=== PATIENT | male | born 1990 | race Caucasian/White ===

== ENCOUNTER 2017-08-02 19:13 | Emergency (ER) | payer BC ==
[2017-08-02 19:24] VITALS: TEMP 98.4
[2017-08-02] MEDS ORDERED: methylPREDNISolone SOD SUCC 125 MG/2 ML VIAL IVP ONE (19:46)
[2017-08-02] MEDS ORDERED: RANITIDINE 50 MG/2 ML VIAL IVP ONE (19:46)
--- NOTE | 2017-08-02 19:48 | EDPHY ---
H & P Time Seen by Provider: 08/02/17 19:40 HPI/ROS: Chief complaint. Allergic reaction HPI. 26-year-old male with known allergic reaction to milk and dairy products was eating in a restaurant and apparently the foods that he was eating were supposed to be without milk and dairy free. He started to become nauseated and then became quite red. He was concerned that this felt like a previous allergic reaction. He went to his car and gave himself an EpiPen. EMS was contacted and they started IV gave the patient IV Benadryl and some Zofran for nausea and transported the patient to the department. Patient continues to be red and slightly nauseated. He has had previous allergic reactions. Otherwise no new skin products cleansers or foods. ROS Constitutional. no fever/chills, no weakness Eyes. no problems with vision ENT. Slight throat swelling Cardiovascular. no chest pain Respiratory. no shortness of breath, no cough Abdominal. no abdominal pain, no nausea/vomiting, no diarrhea . no problems urinating MS. no calf pain/swelling, no neck/back pain, no joint pain the Skin. Generalized hives Lymph. no swollen glands Neuro. no headache, no dizziness, no difficulty walking or with speech Past Medical/Surgical History: Asthma and allergic reaction Social History: Single, nonsmoker, no alcohol Smoking Status: Never smoked Physical Exam: General Appearance: Alert well-developed male moderate distress vital signs are stable Eyes: Pupils equal and round no pallor or injection. ENT, pharynx somewhat injected and swollen uvula. No stridor. Speaking in full sentences Respiratory: There are no retractions, lungs are clear to auscultation. Cardiovascular: Regular rate and rhythm. Gastrointestinal: Abdomen is soft and nontender, no masses, bowel sounds normal. Neurological: Awake and alert, sensory and motor exams grossly normal. Skin: Generalized maculopapular hive especially to the face and upper chest Musculoskeletal: Neck is supple nontender. Extremities symmetrical, full range of motion. Psychiatric: Patient is oriented X 3, there is no agitation. Constitutional: Initial Vital Signs Temperature (C) 36.9 C 08/02/17 19:23 Heart Rate 89 08/02/17 19:23 Respiratory Rate 22 H 08/02/17 19:23 Blood Pressure 151/84 H 08/02/17 19:23 O2 Sat (%) 94 08/02/17 19:23 O2 Delivery Mode Nasal Cannula O2 (L/minute) 1 Allergies/Adverse Reactions: milk Allergy (Verified 08/02/17 19:22) nut - unspecified Allergy (Verified 08/02/17 19:22) Home Medications: Medication Instructions Recorded Albuterol 08/02/17 EPINEPHrine [Epipen 0.3 MG] 0.3 mg IM ONCE #2 syr 08/02/17 EPIPEN 08/02/17 Prozac 10 MG (*) 08/02/17 predniSONE 40 mg PO DAILY #8 tablet 08/02/17 Medical Decision Making Procedures: IV normal saline. Albuterol updraft. Repeat epinephrine as the patient is still quite symptomatic. IV Solu-Medrol, H2 jes ED Course/Re-evaluation: Re-evaluation 10:40 p.m.. Patient is improved. Patient and I discussed treatment plan including criteria for return importance of follow-up further evaluation. He expresses understanding and agreement Differential Diagnosis: Acute allergic reaction secondary to unknown cause. Patient does have allergy to milk and dairy but as far as he knows he did consume it. - Data Points Medications Given: Discontinued Medications Albuterol (Proventil Neb) 3 ml IH EDNOW ONE Stop: 08/02/17 20:16 Last Admin: 08/02/17 20:16 Dose: 3 ml Epinephrine HCl (Epinephrine) 0.3 mg IM EDNOW ONE Stop: 08/02/17 20:40 Last Admin: 08/02/17 20:40 Dose: 0.3 mg Sodium Chloride (Ns) 1,000 mls @ 0 mls/hr IV ONCE ONE PRN Reason: Wide Open Stop: 08/02/17 20:58 Last Admin: 08/02/17 20:59 Dose: 1,000 mls Methylprednisolone Sodium Succinate (Solu-Medrol) 125 mg IVP EDNOW ONE Stop: 08/02/17 19:47 Last Admin: 08/02/17 19:49 Dose: 125 mg Ranitidine HCl (Zantac) 50 mg IVP EDNOW ONE Stop: 08/02/17 19:47 Last Admin: 08/02/17 19:53 Dose: 50 mg Departure - Departure Disposition: Home, Routine, Self-Care Clinical Impression: Acute allergic reaction Qualifiers: Encounter type: initial encounter Qualified Code(s): T78.40XA - Allergy, unspecified, initial encounter Condition: Good Instructions: Milk Allergy (ED), General Allergic Reaction (ED) Additional Instructions: Start prednisone tomorrow taking 2 pills the daily for 4 days. May use Benadryl or Claritin in addition if necessary. Return for worsening symptoms. I will give you the name of local physician for follow-up. Referrals: Patient,NotPresent [Unknown] - As per Instructions Zahira Ortiz [place] [place] - As per Instructions Prescriptions: EPINEPHrine [Epipen 0.3 MG] 0.3 mg IM ONCE #2 syr predniSONE 40 mg PO DAILY #8 tablet
[2017-08-02] MEDS ORDERED: ALBUTEROL 3 ML DEYVIAL IH ONE (20:15)
[2017-08-02] MEDS ORDERED: NS 1,000 ML IV ONE (20:57)
[2017-08-02] MEDS ORDERED: ALBUTEROL 3 ML DEYVIAL ONE (21:00)
[2017-08-02 22:13] VITALS: O2SAT 94
[2017-08-02 23:05] VITALS: BP 123/63; PULSE 90; RESP 16
== END 2017-08-02 23:05 | disposition home or self-care (01) ==
DX: T78.1XXA Other adverse food reactions, not elsewhere classified, initial encounter (principal); J45.909 Unspecified asthma, uncomplicated
CPT/HCPCS: 96374; J0171; J2780